=== PATIENT | male | born 1940 | race Caucasian/White ===

== ENCOUNTER → 2023-11-12 14:39 | Outpatient (REF) | payer MEDICARE, SELFPAY | LOC: HWRAD 14:39 | PROVIDERS: ATTENDING PHYSICIAN Family Medicine | DX: M17.11 Unilateral primary osteoarthritis, right knee (principal); I65.23 Occlusion and stenosis of bilateral carotid arteries | CPT/HCPCS: 93880 ==

== ENCOUNTER → 2023-11-16 11:32 | Outpatient (REF) | payer MEDICARE, SELFPAY | LOC: DHCBC/DCA 11:32 | PROVIDERS: ATTENDING PHYSICIAN Internal Medicine; FAMILY PHYSICIAN Family Medicine | DX: Z01.810 Encounter for preprocedural cardiovascular examination (principal); E78.00 Pure hypercholesterolemia, unspecified; R94.31 Abnormal electrocardiogram [ECG] [EKG] | CPT/HCPCS: 78452; 93017; A9500; J2785 ==

== ENCOUNTER → 2023-11-19 14:45 | Outpatient (REF) | payer MEDICARE, SELFPAY | LOC: RCS 14:45 | PROVIDERS: ATTENDING PHYSICIAN Internal Medicine; FAMILY PHYSICIAN Family Medicine | DX: Z01.810 Encounter for preprocedural cardiovascular examination (principal); E78.00 Pure hypercholesterolemia, unspecified; R94.31 Abnormal electrocardiogram [ECG] [EKG] | CPT/HCPCS: 93306 ==

== ENCOUNTER 2024-12-08 13:24 | Emergency (ER) | payer MEDICARE, BC, SELFPAY ==
[2024-12-08 13:33] VITALS: BP 160/73
--- NOTE | 2024-12-08 14:33 | ED.GENMED ---
History of Present Illness
General
Chief Complaint: Fall
Source: patient
Exam Limitations: none
Time Seen by Provider: 12/08/24 14:23
Nursing documentation reviewed up to this point in time: agreed with
History of Present Illness
History of Present Illness:
84-year-old male with history of glaucoma, arthritis, kidney stones, GERD, diverticulitis, skin cancer, syncope/bradycardia, anemia, pacemaker states at 12 noon which is 3 hours ago he was bending over folding some tarps when he had a sudden onset
of uncontrollable muscle movements in his arms and then his legs 'gave out' which caused him to fall in his driveway, he struck his forehead causing a laceration. He had tetanus immunization 2-3 years ago. He denies loss of consciousness. Denies
neck pain or any other injury from the fall.
He states he has had similar episodes in the past 2 years never while at rest, always with activity especially activity including bending over or squatting where he gets 'electric-like shocks and then involuntary uncontrollable, movements' in his
arms. He states these episodes never last more than a couple minutes and then pass.. He states they have never been 'this bad' before and his legs never gave out.
PCP aware of these spells, he does have chronic neck pain and pain in the thoracic back area and has been told he may have a pinched nerve causing the symptoms.
He is asymptomatic at this time.
Patient meds:
Atorvastatin 10 mg daily
Metrazol sodium DR 20 mg daily
Dymista 137 mcg over 50 mcg nasal spray
Cosopt 22.3 to 6.8 mg/mL left eye twice daily paroxetine left eye once daily fluorometholone 0.1% daily right eye
Islam
Tadalafil 5 mg once daily
Aspirin 81 mg daily
Vitamin D3 50 mcg
Past History
Past History
ED Past Medical History: Cancer (Skin cancer of nose 2008), Other (Anemia kidney stones, ) and Other (Diverticulitis, arthritis, glaucoma. )
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
Social History
Tobacco: Non-smoker
Alcohol: None
Drug: None
Personal:
Living: with family
Employment: Employed
Family History
Family History: Other (Noncontributory )
Review of Systems
Review of Systems
Allergies reviewed?: Yes
All Other Systems: ROS reviewed and negative except as documented in HPI and ROS
Constitutional: Denies fever
Respiratory: Denies trouble breathing
Cardiac: Denies chest pain, diaphoresis, palpitations or syncope
ABD/GI: Denies abdominal pain or nausea
: Denies dysuria, incontinence or difficulty voiding
Musculoskeletal: Reports back pain (pain across mid to upper back); Denies edema or neck pain
Skin: Reports no symptoms
Neurological: Reports no symptoms
Phy Exam
Physical Exam
Physical Exam:
GENERAL: No acute distress. A&Ox3.
CONSTITUTIONAL: Afebrile.
EYES: clear, conjunctivae normal
ENMT: moist mucus membranes, Pharynx nl
RESPIRATORY: Regular respirations, nonlabored, lungs clear.
CARDIOVASCULAR: Regular rate and rhythm, no murmurs, no rubs.
GI: Soft, nontender, normal BS
MUSCULOSKELETAL: No spinal bony tenderness. Tender generally across the mid to upper back. Well perfused.
SKIN: Warm, dry, pink, left forehead laceration
PSYCH: Normal mood and affect. Well kept, interactive and appropriate
NEUROLOGIC: Awake, alert and oriented. Cranial nerves II through XII intact. Strength equal throughout. Patient ambulating well with normal gait. No focal neurological deficits
Course
Orders/Labs/Results
Orders:
Orders
12/08/24 13:36
CT Cervical Spine W/o Iv Contr Urgent
Comment:
Reason For Exam: fall with neck pain
CT Head W/o Iv Contrast Urgent
Comment:
Reason For Exam: fall with head injury
12/08/24 14:42
Lidocaine/Epinephrine/Tetracai [Let Topical Anesthetic Gel] 3 ml TOPICAL NOW STA
12/08/24 16:14
Thoracic Spine 4 Views CR [CR Thoracic Spine Min 4 Views] Urgent
Comment:
Reason For Exam: pain
Vital Signs
Initial and Last Documented VS:
Initial Vital Signs
Temp Pulse Resp BP Pulse Ox
98.3 F 62 18 160/73 96
12/08/24 13:33 12/08/24 13:33 12/08/24 13:33 12/08/24 13:33 12/08/24 13:33
Last Documented Vital Signs
Temp Pulse Resp BP Pulse Ox
98.3 F 62 20 160/73 96
12/08/24 13:33 12/08/24 13:33 12/08/24 14:16 12/08/24 13:33 12/08/24 13:33
Procedures
Laceration Closure
left forehead:
Status of Wound: clean
Size of Wound in cm: 4
Description of Wound Edges: ragged
Preparation: cleaned with saline
Anesthesia: 1% Lidocaine with epi and Topical-LET
Revision/Debridement: routine- no revision
Type of Closure: single layer closure
Skin Closure Material: 5-0 prolene
Number of sutures: 10
MDM/Problems Addressed
Differential Diagnosis Includes:
fall from stumble, thoracic radiculopathy
MDM/Problems Addressed:
84-year-old male with history of glaucoma, arthritis, kidney stones, GERD, diverticulitis, skin cancer, syncope/bradycardia, anemia, pacemaker states at 12 noon which is 3 hours ago he was bending over folding some tarps when he had a sudden onset
of uncontrollable muscle movements in his arms and then his legs 'gave out' which caused him to fall in his driveway, he struck his forehead causing a laceration. He had tetanus immunization 2-3 years ago. He denies loss of consciousness. Denies
neck pain or any other injury from the fall.
He states he has had similar episodes in the past 2 years never while at rest, always with activity especially activity including bending over or squatting where he gets 'electric-like shocks and then involuntary uncontrollable, movements' in his
arms. He states these episodes never last more than a couple minutes and then pass.. He states they have never been 'this bad' before and his legs never gave out.
PCP aware of these spells, he does have chronic neck pain and pain in the thoracic back area and has been told he may have a pinched nerve causing the symptoms.
He is asymptomatic at this time.
He is asymptomatic at this time.
Normal neuro exam, NAD
3:15 PM:
Head CT unremarkable
Neck CT unremarkable
Stellate laceration left forehead sutured
5:30 p.m.
Thoracic spine xray: No acute finding, DJD/arthritic changes.
6:10 PM:
Patient ambulated out with normal gait.
*Critical Care Note
Total Time (30-74mins, 75-104mins- exclusive of procedures): Not Applicable
ED Attending Note
-
Portions of this chart may have been created with voice recognition software.� Occasional wrong word or��sound alike� substitutions may have occurred due to the inherent limitations of voice recognition software.
Discharge Plan
Departure
Patient Disposition: Home (Routine Discharge)
Date of Disposition: 12/08/24
Time of Disposition: 17:41
Patient with high blood pressure during this ER visit?: No
Condition: Good
Discharge Problem:
Fall, Forehead laceration, Musculoskeletal back pain
Instructions: Head Injury in Adults (DC), Laceration Repair With Stitches (DC), Upper Back Pain ED
Prescriptions:
No Action
rabeprazole 20 MG tablet,delayed release (DR/EC)
20 mg PO DAILY
aspirin [Adult Low Dose Aspirin] 81 MG tablet,delayed release (DR/EC)
81 mg PO DAILY
dorzolamide-timolol [Cosopt] 10 ML drops
1 drp LEFT EYE BID
Dymista Nasal [place]
1 spray NASSPRAY PRN PRN (Reason: up to bid)
Patient Comments:
137mcg/50mcg per spray
atorvastatin 10 MG tablet
10 mg PO DAILY
sodium chloride [Lopez 128] 5 % Drops
1 drp BOTH EYES DAILY
tadalafil 5 mg Tablet
5 mg PO DAILY PRN (Reason: BPH)
Rocklatan 0.02-0.005 % Drops
1 drp LEFT EYE DAILY
fluorometholone
1 unit RIGHT EYE DAILY
Referrals:
Khalif Lane MD [Family Provider] - Call in 1-3 days for appt
Activity Restrictions/Additional Instructions:
As we discussed, have the sutures removed in 6-7 days.
Cleanse area daily in shower, apply antibiotic ointment and band aid
Your head and neck CT show nothing worrisome.
Your thoracic spine xray shows some degenerative/arthritic changes
See your doctor next week for suture removal and recheck.
Return here immediately for vomiting more than once, confusion, headache that gets worse and worse despite Tylenol
Interventions
Interventions:
*Risk Screen - Suicide Last Done: 12/08/24 13:33
*General Assessment Last Done: 12/08/24 13:33
*Neglect/Abuse Screening Last Done: 12/08/24 14:16
*ED- Fall Risk Assessment Last Done: 12/08/24 14:16
*ED COVID-19 Vaccine History Last Done: 12/08/24 14:16
*Nursing Disposition Last Done: 12/08/24 18:05
ED-Musculoskeletal Assessment Last Done: 12/08/24 14:16
ED- Neurological Assessment Last Done: 12/08/24 14:16
ED-Skin Assessment Last Done: 12/08/24 14:16
Discharge Date and Time
Discharge Date/Time: 12/08/24 18:05
Print Language: BARBADIAN
[2024-12-08] MEDS: LET TOPICAL ANESTHETIC GEL 3 ML TOPICAL (14:48)
== END 2024-12-08 18:05 | disposition home or self-care (01) ==
LOC: EMR 13:24
PROVIDERS: EMERGENCY PHYSICIAN Emergency Medicine; FAMILY PHYSICIAN Family Medicine
DX: S01.81XA Laceration without foreign body of other part of head, initial encounter (principal); M54.6 Pain in thoracic spine; M54.2 Cervicalgia; R25.8 Other abnormal involuntary movements; W01.198A Fall on same level from slipping, tripping and stumbling with subsequent striking against other object, initial encounter; Y92.008 Other place in unspecified non-institutional (private) residence as the place of occurrence of the external cause; H40.9 Unspecified glaucoma; M19.90 Unspecified osteoarthritis, unspecified site; K21.9 Gastro-esophageal reflux disease without esophagitis; K57.92 Diverticulitis of intestine, part unspecified, without perforation or abscess without bleeding; D64.9 Anemia, unspecified; I10 Essential (primary) hypertension; E78.5 Hyperlipidemia, unspecified; D50.9 Iron deficiency anemia, unspecified; G89.29 Other chronic pain; Z95.0 Presence of cardiac pacemaker; Z96.651 Presence of right artificial knee joint; Z87.442 Personal history of urinary calculi; Z85.828 Personal history of other malignant neoplasm of skin; Z87.891 Personal history of nicotine dependence; Z79.82 Long term (current) use of aspirin
CPT/HCPCS: 99284; 12013; 70450; 72074; 72125

== ENCOUNTER → 2025-01-06 09:24 | Outpatient (REF) | payer MEDICARE, BC, SELFPAY | LOC: MRI 3T 09:24 | PROVIDERS: ATTENDING PHYSICIAN Family Medicine | DX: R25.9 Unspecified abnormal involuntary movements (principal); R53.1 Weakness | CPT/HCPCS: 70551; 76014; 76015 ==

== ENCOUNTER → 2025-03-20 13:56 | Outpatient (REF) | payer MEDICARE, BC, SELFPAY | LOC: MRI 13:56 | PROVIDERS: ATTENDING PHYSICIAN Psychiatry & Neurology Neurology; FAMILY PHYSICIAN Family Medicine | DX: R20.2 Paresthesia of skin (principal) | CPT/HCPCS: 72141 ==